=== PATIENT | male | born 1960 | race Caucasian/White ===

== ENCOUNTER 2022-12-25 12:02 | Outpatient (CLI) | payer BC, SELFPAY ==
--- NOTE | ~2022-12-25 | MR_ITS ---
MRI of the lumbar spine Clinical History: Lumbar radiculopathy Technique: Axial T2-weighted images, and sagittal T1-weighted, T2-weighted, and STIR images were acqu ired. Following intravenous administration of 20 cc MultiHance gadolinium, T1-weighted fat-sat imagin g was performed in the axial and sagittal planes. Findings: There is no acute fracture in the lumbar spine. Minimal grade 1 retrolisthesis of L2 over L 3 present. Minimal grade 1 retrolisthesis of L3 over L4 present. There is posterior fusion from L5 to S1, with bilateral rods and transpedicular screws present. There is associated L5 laminectomy. There are reactive marrow signal changes about the anterior aspect of the L2-L3 disc space, related to und erlying degenerative disc disease.. At L1-L2, there is mild degenerative disc narrowing and minimal facet joint hypertrophy. No spinal ca nal stenosis or neural foraminal narrowing. No significant disc bulge. At L2-L3, there is advanced degenerative disc narrowing with mild disc bulge and mild facet arthropat hy. There is minimal central canal stenosis/thecal sac compression. There is moderate to advanced kyleigh ateral neural foraminal narrowing. At L3-L4, there is disc bulge and facet arthropathy, resulting in moderate spinal canal stenosis/thec al sac compression. There is advanced bilateral neural foraminal narrowing. At L4-L5, diffuse disc bulge and facet arthropathy result in severe thecal sac compression/spinal can al stenosis. There is severe bilateral neural foraminal narrowing. At L5-S1, there is no disc bulge or herniation. No spinal canal stenosis. There is probable moderate to advanced bilateral neural foraminal narrowing. Paravertebral soft tissues are unremarkable aside from expected postoperative changes. No abnormal po stcontrast enhancement identified. Impression: Posterior fusion from L5 to S1 with associated L5 laminectomy. Minimal grade 1 retrolisthesis of L2 over L3, and of L3 over L4. Moderate to advanced degenerative spondylosis, most notably at L2-L3, L3-L4, and L4-L5. Please see de tails above. Reviewed, dictated and finalized at [facility]. Impression: Posterior fusion from L5 to S1 with associated L5 laminectomy. Minimal grade 1 retrolisthesis of L2 over L3, and of L3 over L4. Moderate to advanced degenerative spondylosis, most notably at L2-L3, L3-L4, an d L4-L5. Please see details above.
== END 2022-12-25 12:03 ==
PROVIDERS: PCP Pediatrics; Visit Provider Pediatrics
DX: M54.16 Radiculopathy, lumbar region (principal); Z98.1 Arthrodesis status; M43.16 Spondylolisthesis, lumbar region
CPT/HCPCS: 72158; A9577